=== PATIENT | male | born 1960 | race Caucasian/White ===

== ENCOUNTER 2017-10-26 12:58 | Emergency (ER) | payer OTHER ==
[~2017-10-26] VITALS: Ht 167.6 cm; Wt 89.0 kg
[2017-10-26 13:09] VITALS: TEMP 37; Ht 167.6 cm; Wt 89.0 kg
[2017-10-26 13:16] VITALS: O2SAT 96
[2017-10-26] MEDS ORDERED: SODIUM CHLORIDE 0.9% 1000ML 1,000 ML IV ONE (13:30)
--- NOTE | 2017-10-26 13:35 | DIAGNOSTIC IMAGING REPORT ---
CHEST ONE VIEW PORTABLE HISTORY: cough syncope COMPARISON: None. FINDINGS: The lungs are clear. Cardiac silhouette is normal in size. No pleural effusions. No pneumothorax. IMPRESSION: No acute process. Electronically signed by: Lupillo Lyon M.D. 10/26/2017 1:33 PM Dictated Date/Time: 10/26/2017 1:30 PM
--- NOTE | 2017-10-26 14:01 | EMERGENCY ROOM VISIT NOTE ---
History First contact with patient: 13:01 Chief Complaint: SYNCOPE Stated Complaint: SYNCOPE Nursing Triage Summary: Patient presents to ED via ALS after syncopal episode. Patient was eating at the [employer] shop when he had a sudden onset of not feeling well, patient had color change and then had syncopal episode. + LOC. When EMS arrived on scene patient was pale and diaphoretic. EMS was unable to palpate radial pulse initally and SBP was around 60. Patient did take decongestant today. BS. Patient denies any chest pain or shortness of breath with this episode. Does c/o having a dry cough for long time. History of Present Illness The patient is a 57 year old male who presents to the Emergency Room with complaints of a syncopal episode prior to arrival. It occurred at approximately 12:30 PM. The patient was sitting at the [employer] shop with his when he suddenly did not "feel right." He reportedly went lopez and passed out lying his head on the table. He did not fall. Upon arrival, EMS notes that his blood pressure was 50/40s and EKG was performed. It was sinus bradycardia with a HR in the 50s., And no radial pulses were palpated. The patient denied any chest pain or difficulty breathing. He has been ill recently with a cough. He started taking a cough medication, acetaminophen and an antihistamine yesterday. Otherwise, he does not take any medications on a daily basis. He does note that he thinks that he lost vision in his right eye for approximately 20 seconds. This has resolved. He denies any severe headache. Review of Systems 10 system review performed and negative unless noted in HPI or below Past Medical/Surgical History Otherwise healthy Social History Smoking Status: Current Some Day Smoker Marital Status: Physical Exam Vital Signs Date Time Temp Pulse Resp B/P (MAP) Pulse Ox O2 Delivery O2 Flow Rate FiO2 10/26/17 19:25 84 18 120/72 98 10/26/17 18:52 82 18 139/85 97 Room Air 10/26/17 17:04 88 20 156/86 96 Room Air 10/26/17 14:59 84 14 136/80 95 Room Air 10/26/17 14:05 80 10/26/17 13:39 97 157/78 94 Room Air 10/26/17 13:37 88 151/76 83 153/86 93 157/78 10/26/17 13:16 96 Room Air 10/26/17 13:09 37.0 72 148/76 96 Room Air Physical Exam VITALS: Vitals are noted on the nurse's note and reviewed by myself. Vital signs stable. GENERAL: 57-year-old male, in no acute distress, nondiaphoretic, well-developed well-nourished. SKIN: The skin was without rashes, erythema, edema, or bruising HEAD: Normocephalic atraumatic. EYES: Pupils equal round and reactive to light and accommodation. Conjunctivae without injection, sclerae without icterus. Extraocular movements intact. MOUTH: Mucous membranes moderately dry tonsils are not enlarged. Pharynx without erythema or exudate. Uvula midline. Airway patent. Tongue does not deviate. NECK: Supple without nuchal rigidity. No lymphadenopathy. Cervical spine is nontender. No JVD. HEART: Regular rate and rhythm without murmurs gallops or rubs. LUNGS: Clear to auscultation bilaterally without wheezes, rales or rhonchi. No accessory muscle use. ABDOMEN: Positive bowel sounds x 4.Soft, nontender, without organomegaly. No guarding or rebound tenderness. MUSCULOSKELETAL: No muscle atrophy, erythema, or edema noted. Strength 5/5 throughout. NEURO: Patient was alert and oriented to person place and time. Cerebellar function intact. Cranial nerves grossly intact. Normal sensation to touch. No focal neurological deficits. Medical Decision & Procedures ER Provider Diagnostic Interpretation: CT head Impression: No acute intracranial abnormality. Electronically signed by: Lupillo Lyon M.D. 10/26/2017 2:48 PM Dictated Date/Time: 10/26/2017 2:39 PM The status of this report is Signed. Draft = Not yet reviewed or approved by Radiologist. Signed = Reviewed and approved by Radiologist. <AttendingPhy></AttendingPhy> <FamilyPhy>No Doctor, Assigned</FamilyPhy> < PrimaryPhy>No Doctor, Assigned</PrimaryPhy> <UnitNumber>[id number]</UnitNumber> <VisitNumber>[id number]</VisitNumber> <PatientName>CHIOMA HUFF</PatientName> <DateOfBirth>1960</DateOfBirth> <Location>[facility]</Location> <ServiceDate></ServiceDate> <MNE>ESINDI</MNE> <OrderingPhy>Selina Damon PA-C</ OrderingPhy> <OrderingPhyMNE>f rep ord dr garza</OrderingPhyMNE> <DictatingPhyMNE> f rep dict dr garza</DictatingPhyMNE> <CCListMNE>f rep ct mne</CCListMNE> < AdmittingPhyMNE>f pt admit dr garza</AdmittingPhyMNE> <AttendingPhyMNE>f pt attend dr garza</AttendingPhyMNE> <ConsultingPhyMNE>f pt consult dr garza</ConsultingPhyMNE> <FamilyPhyMNE>f pt fam dr garza</FamilyPhyMNE> <OtherPhyMNE>f pt other dr garza</OtherPhyMNE> < PrimaryPhyMNE>f pt prim care dr garza</PrimaryPhyMNE> <ReferringPhyMNE>f pt referring dr garza</ReferringPhyMNE> Chest x-ray IMPRESSION: No acute process. Electronically signed by: Lupillo Lyon M.D. 10/26/2017 1:33 PM Dictated Date/Time: 10/26/2017 1:30 PM The status of this report is Signed. Draft = Not yet reviewed or approved by Radiologist. Signed = Reviewed and approved by Radiologist. MRI brain IMPRESSION: Normal MRI of the brain for age Electronically signed by: Felipe Huertas M.D. 10/26/2017 6:20 PM Dictated Date/Time: 10/26/2017 6:18 PM The status of this report is Signed. Draft = Not yet reviewed or approved by Radiologist. Signed = Reviewed and approved by Radiologist. <AttendingPhy></AttendingPhy> <FamilyPhy>No Doctor, Assigned</FamilyPhy> < PrimaryPhy>No Doctor, Assigned</PrimaryPhy> <UnitNumber>[id number]</UnitNumber> <VisitNumber>[id number]</VisitNumber> <PatientName>REFUGIOCHIOMA</PatientName> <DateOfBirth>1960</DateOfBirth> <Location>C.EDB</Location> <ServiceDate></ServiceDate> <MNE>ESINDI</MNE> <OrderingPhy>Nelson, Selina Dodson PA-C</ OrderingPhy> <OrderingPhyMNE>f rep ord dr garza</OrderingPhyMNE> <DictatingPhyMNE> f rep dict dr garza</DictatingPhyMNE> <CCListMNE>f rep ct mne</CCListMNE> < AdmittingPhyMNE>f pt admit dr garza</AdmittingPhyMNE> <AttendingPhyMNE>f pt attend dr garza</AttendingPhyMNE> <ConsultingPhyMNE>f pt consult dr garza</ConsultingPhyMNE> <FamilyPhyMNE>f pt fam dr garza</FamilyPhyMNE> <OtherPhyMNE>f pt other dr garza</OtherPhyMNE> < PrimaryPhyMNE>f pt prim care dr garza</PrimaryPhyMNE> <ReferringPhyMNE>f pt referring dr garza</ReferringPhyMNE> Laboratory Results 10/26/17 13:50 Red Blood Count 4.54, Mean Corpuscular Volume 86.6, Mean Corpuscular Hemoglobin 30.0, Mean Corpuscular Hemoglobin Concent 34.6, Mean Platelet Volume 8.6, Neutrophils (%) (Auto) 67.4, Lymphocytes (%) (Auto) 20.4, Monocytes (%) (Auto) 9.5, Eosinophils (%) (Auto) 2.1, Basophils (%) (Auto) 0.3, Neutrophils # (Auto) 3.92, Lymphocytes # (Auto) 1.19, Monocytes # (Auto) 0.55, Eosinophils # (Auto) 0.12, Basophils # (Auto) 0.02 10/26/17 13:50 Test 10/26/17 13:40 10/26/17 13:50 10/26/17 15:40 10/26/17 16:17 Influenza Type A Antigen Neg for Influ A (NEG) Influenza Type B Antigen Neg for Influ B (NEG) White Blood Count 5.82 K/uL (4.8-10.8) Red Blood Count 4.54 M/uL (4.7-6.1) Hemoglobin 13.6 g/dL (14.0-18.0) Hematocrit 39.3 % (42-52) Mean Corpuscular Volume 86.6 fL (80-100) Mean Corpuscular Hemoglobin 30.0 pg (25-34) Mean Corpuscular Hemoglobin Concent 34.6 g/dl (32-36) Platelet Count 170 K/uL (130-400) Mean Platelet Volume 8.6 fL (7.4-10.4) Neutrophils (%) (Auto) 67.4 % Lymphocytes (%) (Auto) 20.4 % Monocytes (%) (Auto) 9.5 % Eosinophils (%) (Auto) 2.1 % Basophils (%) (Auto) 0.3 % Neutrophils # (Auto) 3.92 K/uL (1.4-6.5) Lymphocytes # (Auto) 1.19 K/uL (1.2-3.4) Monocytes # (Auto) 0.55 K/uL (0.11-0.59) Eosinophils # (Auto) 0.12 K/uL (0-0.5) Basophils # (Auto) 0.02 K/uL (0-0.2) RDW Standard Deviation 41.8 fL (36.4-46.3) RDW Coefficient of Variation 13.2 % (11.5-14.5) Immature Granulocyte % (Auto) 0.3 % Immature Granulocyte # (Auto) 0.02 K/uL (0.00-0.02) D-Dimer 300 ug/L FEU (0-500) Anion Gap 6.0 mmol/L (3-11) Est Creatinine Clear Calc Drug Dose 75.5 ml/min Estimated GFR () 84.7 Estimated GFR (Non- 73.1 BUN/Creatinine Ratio 14.4 (10-20) Calcium Level 8.1 mg/dl (8.5-10.1) Total Bilirubin 0.3 mg/dl (0.2-1) Aspartate Amino Transf (AST/SGOT) 24 U/L (15-37) Alanine Aminotransferase (ALT/SGPT) 41 U/L (12-78) Alkaline Phosphatase 82 U/L (45-117) Total Creatine Kinase 133 U/L (39-308) Creatine Kinase MB 1.6 ng/ml (0.5-3.6) Creatine Kinase MB Ratio 1.2 (0-3.0) Total Protein 6.9 gm/dl (6.4-8.2) Albumin 3.3 gm/dl (3.4-5.0) Globulin 3.6 gm/dl (2.5-4.0) Albumin/Globulin Ratio 0.9 (0.9-2) Thyroid Stimulating Hormone (TSH) 6.530 uIu/ml (0.300-4.500) Urine Color YELLOW Urine Appearance CLEAR (CLEAR) Urine pH 7.0 (4.5-7.5) Urine Specific [place] 1.018 (1.000-1.030) Urine Protein NEG (NEG) Urine Glucose (UA) NEG (NEG) Urine Ketones NEG (NEG) Urine Occult Blood NEG (NEG) Urine Nitrite NEG (NEG) Urine Bilirubin NEG (NEG) Urine Urobilinogen NEG (NEG) Urine Leukocyte Esterase NEG (NEG) Troponin I < 0.015 ng/ml (0-0.045) Medications Administered Medications (Trade) Dose Ordered Sig/Gabriela Route Start Time Stop Time Status Last Admin Dose Admin Sodium Chloride 1,000 ml @ 999 mls/hr Q1H1M ONCE IV 10/26/17 13:30 10/26/17 14:30 DC 10/26/17 13:39 999 MLS/HR ED Course Patient was seen and examined Vital signs including blood pressure were reviewed medications list was verified with patient Labs were obtained, and a saline lock was established The patient was hydrated with 1 L of normal saline. The case was discussed with my supervising physician. The patient was reevaluated. We discussed his workup. He voiced understanding. A repeat EKG and troponin were ordered and reviewed. An MRI of the brain was performed and reviewed. Upon reassessment, the patient was resting comfortably. We discussed the results. He voiced understanding, was comfortable being discharged home. I reviewed discharge instructions the patient. They voiced understanding and had no further questions. Medical Decision Differential diagnosis: Dehydration, vasovagal syncope, cardiogenic syncope, neurogenic syncope, pulmonary embolus, adverse medication reaction This patient is a 57-year-old male presents to the emergency department with complaints of a syncopal episode that occurred prior to arrival. On exam, the patient was slightly dehydrated. He was neurologically intact. An EKG did not show any acute signs of ischemia or infarction. Troponin was performed and negative. The patient admitted to "not feeling right" prior to the episode. I had a lengthy discussion about possibly keeping the patient in the hospital for further workup. The patient would prefer to be discharged home. I did perform an MRI of the brain. No acute findings were noted. The etiology of his syncope is unclear. It is possibly a mixture of dehydration and the over-the- counter medications the patient took for a cold. (Chest x-ray is negative. Influenza was also negative.) The patient was advised that he needs very close follow-up. He will call first thing Sunday morning for a follow-up appointment. He also agrees to return to the emergency department with any new or returning symptoms. This chart was completed in part utilizing [employer] Speech Voice Recognition software. Attempts were made to minimize the grammatical errors, random word insertions, pronoun errors and incomplete sentences. Any formal questions or concerns about the content, text or information contained within the body of this dictation should be directly addressed to the provider for clarification. Medication Reconcilliation Current Medication List: was personally reviewed by me Blood Pressure Screening Patient's blood pressure: Elevated blood pressure Blood pressure disposition: Did not require urgent referral Impression Primary Impression: Syncope Departure Information Dispostion Home / Self-Care Condition GOOD Referrals No Doctor, Assigned (PCP) Patient Instructions Fainting (Syncope) - [facility], [facility] Additional Instructions You have been evaluated in the emergency department for syncope-passing out. No acute abnormalities were noted in your MRI or CAT scan. Your TSH, which is a function of thyroid, was slightly abnormal. Please follow-up as soon as possible with your primary care physician. Call first thing Sunday for a follow-up appointment. Please try to stay well hydrated and eat regular meals. Increase fluids over the next several days. Please do not hesitate to return to the emergency department with any new, worsening or concerning symptoms; especially, severe dizziness, vomiting, chest pain, difficulty breathing or heart palpitations. It was a pleasure participating in your care today. Work Instructions Return To Work: 2 days
[2017-10-26 14:03] LABS: BASO % 0.3 %; BASO ABS # 0.02 K/uL (0-0.2); EOS % 2.1 %; EOS ABS # 0.12 K/uL (0-0.5); HEMATOCRIT 39.3 % (42-52); HEMOGLOBIN 13.6 g/dL (14.0-18.0); IG# 0.02 K/uL (0.00-0.02); LYMPH % 20.4 %; LYMPH ABS # 1.19 K/uL (1.2-3.4); MEAN CELL VOLUME 86.6 fL (80-100); MEAN CORPUSCULAR HGB CONC 34.6 g/dl (32-36); MEAN PLATELET VOLUME 8.6 fL (7.4-10.4); MONO % 9.5 %; MONO ABS # 0.55 K/uL (0.11-0.59); NEUT % 67.4 %; NEUT ABS # 3.92 K/uL (1.4-6.5); PLATELET COUNT 170 K/uL (130-400); RED CELL DISTRIBUTION WIDTH CV 13.2 % (11.5-14.5); RED CELL DISTRIBUTION WIDTH SD 41.8 fL (36.4-46.3); WHITE BLOOD COUNT 5.82 K/uL (4.8-10.8)
[2017-10-26 14:21] LABS: ALBUMIN 3.3 gm/dl (3.4-5.0); ALT/SGPT 41 U/L (12-78); AST/SGOT 24 U/L (15-37); BLOOD UREA NITROGEN 16 mg/dl (7-18); CALCIUM 8.1 mg/dl (8.5-10.1); CARBON DIOXIDE 25 mmol/L (21-32); GLUCOSE 93 mg/dl (70-99); POTASSIUM 3.7 mmol/L (3.5-5.1); SODIUM 138 mmol/L (136-145)
[2017-10-26 14:24] LABS: INFLUENZA B ANTIGEN Neg for Influ B (NEG)
[2017-10-26 14:32] LABS: ALKALINE PHOSPHATASE 82 U/L (45-117); CKMB 1.6 ng/ml (0.5-3.6); TOTAL PROTEIN 6.9 gm/dl (6.4-8.2)
--- NOTE | 2017-10-26 14:49 | DIAGNOSTIC IMAGING REPORT ---
HEAD CT NONCONTRAST CT DOSE: 614.27 mGy.cm HISTORY: syncope TECHNIQUE: Multiaxial CT images of the head were performed without the use of intravenous contrast. Automated exposure control was utilized for this study. A dose lowering technique was utilized adhering to the principles of ALARA. Comparison: None. Findings: The paranasal sinuses and mastoid air cells are clear. The calvarium and skull base are intact. The ventricles and sulci are within normal limits. There is no mass, hematoma, midline shift, or acute infarct. Impression: No acute intracranial abnormality. Electronically signed by: Lupillo Lyon M.D. 10/26/2017 2:48 PM Dictated Date/Time: 10/26/2017 2:39 PM
--- NOTE | 2017-10-26 18:22 | DIAGNOSTIC IMAGING REPORT ---
MRI OF THE BRAIN WITHOUT AND WITH IV CONTRAST CLINICAL HISTORY: Dizziness, syncope. COMPARISON STUDY: Noncontrast head CT dated 10/26/2017 TECHNIQUE: MRI of the brain was performed from the vertex to the skull base utilizing various T1 and T2 weighted sequences. Following the IV administration of 8.5 mL of Gadavist contrast, additional enhanced images were obtained. FINDINGS: Sagittal T1, axial diffusion, proton density and T2 weighted axial, coronal FLAIR, and pre and post axial T1-weighted images were acquired. These were supplemented with post gadolinium coronal T1 weighted images. No intra or extra-axial mass lesions are visualized. Axial diffusion-weighted images reveal no evidence of acute or subacute infarction. There is no evidence of ventricular dilatation. Proton density T2-weighted and FLAIR images reveal no significant intraparenchymal signal abnormalities. There are no abnormal flow voids. There is no evidence of pathologic enhancement. IMPRESSION: Normal MRI of the brain for age Electronically signed by: Felipe Huertas M.D. 10/26/2017 6:20 PM Dictated Date/Time: 10/26/2017 6:18 PM
[2017-10-26 19:25] VITALS: BP 120/72; PULSE 84; O2SAT 98
== END 2017-10-26 19:34 | disposition home or self-care (01) ==
LOC: EDBD 12:58 → C.EDB 12:59
DX: R55 Syncope and collapse (principal); R00.1 Bradycardia, unspecified; R03.0 Elevated blood-pressure reading, without diagnosis of hypertension; F17.200 Nicotine dependence, unspecified, uncomplicated

== ENCOUNTER → 2017-11-29 | Outpatient (CLI) | payer OTHER ==
[2017-11-29 12:15] LABS: BASO % 0.5 %; BASO ABS # 0.03 K/uL (0-0.2); EOS % 6.3 %; EOS ABS # 0.38 K/uL (0-0.5); HEMATOCRIT 40.4 % (42-52); HEMOGLOBIN 13.6 g/dL (14.0-18.0); IG# 0.03 K/uL (0.00-0.02); LYMPH % 35.7 %; LYMPH ABS # 2.14 K/uL (1.2-3.4); MEAN CELL VOLUME 87.6 fL (80-100); MEAN CORPUSCULAR HEMOGLOBIN 29.5 pg (25-34); MEAN CORPUSCULAR HGB CONC 33.7 g/dl (32-36); MEAN PLATELET VOLUME 9.3 fL (7.4-10.4); MONO % 9.3 %; MONO ABS # 0.56 K/uL (0.11-0.59); NEUT % 47.7 %; NEUT ABS # 2.85 K/uL (1.4-6.5); PLATELET COUNT 257 K/uL (130-400); RED CELL DISTRIBUTION WIDTH CV 13.4 % (11.5-14.5); RED CELL DISTRIBUTION WIDTH SD 43.1 fL (36.4-46.3); RETIC COUNT % 1.2 % (0.5-2.0); WHITE BLOOD COUNT 5.99 K/uL (4.8-10.8)
== END | disposition home or self-care (01) ==
LOC: C.LABBFT 10:55
PROVIDERS: ATTEND Internal Medicine
DX: D64.9 Anemia, unspecified (principal); R94.6 Abnormal results of thyroid function studies

== ENCOUNTER → 2018-02-12 | Outpatient (CLI) | payer OTHER ==
[2018-02-12 17:27] LABS: BASO % 0.6 %; BASO ABS # 0.04 K/uL (0-0.2); EOS % 4.5 %; IG# 0.03 K/uL (0.00-0.02); LYMPH % 31.8 %; LYMPH ABS # 2.14 K/uL (1.2-3.4); MEAN CELL VOLUME 87.7 fL (80-100); MEAN CORPUSCULAR HEMOGLOBIN 29.2 pg (25-34); MEAN CORPUSCULAR HGB CONC 33.3 g/dl (32-36); MEAN PLATELET VOLUME 9.8 fL (7.4-10.4); MONO % 6.4 %; MONO ABS # 0.43 K/uL (0.11-0.59); NEUT % 56.3 %; NEUT ABS # 3.79 K/uL (1.4-6.5); PLATELET COUNT 272 K/uL (130-400); RED CELL DISTRIBUTION WIDTH CV 13.4 % (11.5-14.5); RED CELL DISTRIBUTION WIDTH SD 42.8 fL (36.4-46.3); WHITE BLOOD COUNT 6.73 K/uL (4.8-10.8)
[2018-02-12 17:49] LABS: ALKALINE PHOSPHATASE 93 U/L (45-117); ALT/SGPT 48 U/L (12-78); AST/SGOT 31 U/L (15-37); BLOOD UREA NITROGEN 16 mg/dl (7-18); CALCIUM 9.7 mg/dl (8.5-10.1); CARBON DIOXIDE 29 mmol/L (21-32); CHOLESTEROL 202 mg/dl (0-200); CREATININE 1.08 mg/dl (0.60-1.40); GLUCOSE 91 mg/dl (70-99); LDL CHOLESTEROL CALCULATED 133 mg/dl; POTASSIUM 4.1 mmol/L (3.5-5.1); SODIUM 138 mmol/L (136-145)
== END | disposition home or self-care (01) ==
LOC: C.LABBFT 14:33
PROVIDERS: ATTEND Physician Assistant Medical
DX: E03.9 Hypothyroidism, unspecified (principal); D64.9 Anemia, unspecified; I65.29 Occlusion and stenosis of unspecified carotid artery